=== PATIENT | female | born 1960 | race Caucasian/White ===

== ENCOUNTER 2019-01-19 11:08 | Inpatient (IN) | payer OTHER, SELFPAY ==
[2019-01-13 12:33] VITALS: BMI 26.2
[2019-01-19] VITALS (10 sets, daily range): BP systolic 87–150; BP diastolic 50–87; PULSE 62–96; RESP 12–21; TEMP 35.9–36.6; O2SAT 95–99; BMI 26.2
--- NOTE | 2019-01-19 | DI.RAD.S_ITS ---
PROCEDURE: XR HIP W PEL IF DONE RT 2V INDICATIONS: TOTAL RIGHT HIP TECHNIQUE: AP pelvis and lateral view of the right hip acquired. COMPARISON: [facility], CR, XR PELVIS WITH LATERAL HIP RIGHT, 10/07/2018, 8:30. [facility], CR, XR PELVIS 1-2V, 01/19/2019, 15:33. FINDINGS: Bones: Patient is status post right hip arthroplasty, with hardware components in expected positions. The hip joint appears congruent. The visualized bony structures appear intact. Previous left hip arthroplasty is present. Soft tissues: Overlying postoperative changes are noted. No suspicious soft tissue densities. IMPRESSION: New right hip arthroplasty as above. Dictated by: Carmelita Galeas M.D. on 01/19/2019 at 17:31 Approved by: Carmelita Galeas M.D. on 01/19/2019 at 17:32
--- NOTE | 2019-01-19 06:00 | DI.RAD.S_ITS ---
PROCEDURE: XR PELVIS 1-2V INDICATIONS: INTRA OPERATIVE RIGHT HIP TECHNIQUE: Intra-operative view of the pelvis and hip acquired. COMPARISON: [facility], CR, XR PELVIS WITH LATERAL HIP RIGHT, 10/07/2018, 8:30. FINDINGS: Bones: Intraoperative devices prior to placement of arthroplasty prostheses are in expected positions. No fractures or suspicious bony lesions. There is new right hip arthroplasty present. Previous left hip arthroplasty is noted. Soft tissues: Overlying surgical retractors are present, along with other intraoperative changes. IMPRESSION: Intraoperative new right hip arthroplasty as above. Dictated by: Carmelita Galeas M.D. on 01/19/2019 at 16:53 Approved by: Carmelita Galeas M.D. on 01/19/2019 at 16:54
[2019-01-19] MEDS: LACTATED RINGERS 1,000 ML 42 ML IV ×2 (11:47→16:18)
[2019-01-19] MEDS: ACETAMINOPHEN 325 MG TABLET 975 MG PO ×2 (11:50→18:57)
[2019-01-19] MEDS: VANCOMYCIN 1,000 MG/200 ML FROZ.PIGGY 200 MG IV (12:45)
--- NOTE | 2019-01-19 13:38 | PM.PREOP ---
Pre-operative Note Interval Note History & Physical reviewed/Exam performed by Physician: Yes Changes to H&P: No
--- NOTE | 2019-01-19 13:45 | P.OP_ITS ---
Operative Date/Time/Diagnoses Date of procedure: 01/19/19 Time of procedure: 13:58 Pre-op diagnosis: right hip oa Post-op diagnosis: same Procedure & Clinicians Procedure: right total hip Same procedure as scheduled: Yes Indications: The patient has had progressively worsening right hip pain with radiographic changes consistent with arthritis. Non-operative management has failed and the patient has requested total hip replacement. The risks, benefits and alternatives to surgery were discussed with the patient prior to proceeding. Risks discussed included, but were not limited to, failure to relieve pain, leg length discrepancy, dislocation, stiffness, infection, nerve damage, deep venous thrombosis, pulmonary embolism, stroke, coma, heart attack, permanent paralysis and , as well as the potential need for eventual revision of the prosthetic. Surgeon: Marjorie Yee Pipeliner: Ivy Hernandez Anesthesia Type: Spinal Operative Notes Findings: Severe right hip osteoarthritis, adequate stability Closure Type: primary Specimen(s): none sent Prosthetic devices, grafts, tissues, transplants, or devices: yee and nephew anthology size 7 standard offset, R3 acetabular 48 cup, 48 x 32 mm poly, one 15 mm screw, 32+ 0 head Applied: catheter Estimated Blood Loss (mL): 250 Blood products transfused: none Procedure in detail: The patient was seen in the pre-operative area, where the patient identified the right hip as the operative site and this was marked with my initials. The patient received pre-operative antibiotics and was taken to the operating room and placed on the operative table in the left lateral decubitus position after satisfactory anesthesia. A assistant associate full professor out was performed. The right leg was prepared from the ankle to the iliac crest with ChloroPrep in the usual fashion and draped through sterile drapes. The hip was approached through an approximately 20 cm incision centered over the greater trochanter and curving gently posteriorly as it went proximally. This was carried sharply to the fascia chas, which was divided and retracted with a self retaining retractor. The trochanteric bursa was excised with care being taken to avoid the sciatic nerve, which was identified and protected throughout the case. The short external rotators were incised and the capsulomuscular flap was raised and tagged for later repair. The hip was dislocated, and a femoral neck osteotomy performed approximately 15 mm above the lesser trochanter. Retractors were placed around the femur. The canal was opened with a box cutting osteotome, followed by a T handled reamer and a lateralizing reamer. The chili pepper broach was then used, followed by sequential broaching until there was good stability of the broach in the femur. Retractors were placed to expose the acetabulum. The labrum and central soft tissues were removed. Reaming was performed initially going up in 2 mm increments, then 1 mm increments until good bite was obtained with an odd sized reamer. The cup 1 mm larger than the last reamer was then inserted using the appropriate anteversion guides. A trial neutral liner was placed. The broach was placed in the canal. A trial head and neck were then placed and the hip relocated and checked for leg length and stability. An intraoperative film confirmed the component position and no evidence of fracture. The patient was stable in the position of sleep, of squatting, and could be put through a range of motion with 45 degrees internal rotation without dislocation. At 90 degrees flexion, internal rotation to 70 was possible before dislocation. The x-ray looked like I could probably go up 1 on the stem. I broached the femur up to a size 7. The patient had a fairly shallow acetabulum and it looked like it would be helpful to stabilize it with a screw. the trial liner was removed. Posterior screw 15 mm screw was placed. Repeat trial liner was placed and a repeat trial reduction was done with a 7 standard offset +0 showed excellent range of motion and good stability. X-rays confirmed good position of the components and screw position. the stability was rechecked and it was felt to be satisfactory and the appropriate components were opened, and the trials were removed. The acetabular liner was impacted into position. The final stem was then impacted into the prepared femoral canal. A brief Betadine soak was performed while trialing with head options. The hip was meticulously irrigated with normal saline. Finally the femoral head was impacted onto the stem. The acetabulum was cleared of all material and the hip relocated one final time. The capsulomuscular flap was then repaired to the greater trochanter though an awl hole using the tag sutures. The short external rotators were repaired with nonabsorbable sutures. A deep drain was placed and brought out anteriorly. The fascia chas was closed with Vicryl. The subcutaneous layer was closed with barbed sutures and SteriStrips. An Aquacel Ag dressing was applied and the patient was taken to recovery having tolerated the procedure well. Complications: none Condition: stable Disposition: Acute Care Plan for aftercare: The patient will be maintained on a standard total hip replacement protocol with weight bearing as tolerated and posterior hip precautions. The patient will receive Coumadin and sequential compression devices for DVT prophylaxis. The patient will be discharged home when safe for the home environment.
[2019-01-19] MEDS: CEFAZOLIN 2 GM/100 ML FROZ.PIGGY IV ×2 (14:15→22:47)
--- NOTE | 2019-01-19 14:55 | SUR.OPER ---
Lateral on padded OR bed. Gel axillary roll. Arms secured on padded armboard with pillow supporting top arm. Padded hip positioner braces x4 - anterior and posterior chest and pelvis. Additional gel pad used anterior pelvis. Gel pad under bottom leg from knee to foot and secured with tape over sheet.
[2019-01-19] MEDS: BUPIVACAINE 0.25% W/ EPI 30 ML VIAL 60 ML INJ (15:07)
[2019-01-19] MEDS: BUPIVACAINE LIPOSOME 266 MG/20 ML VIAL INJ (15:07)
[2019-01-19] MEDS: SODIUM CHLORIDE IRRIG SOLUTION 250 ML, EPINEPHrine 1 MG IRR (15:15)
[2019-01-19] MEDS: LACTATED RINGERS 1,000 ML 125 ML IV (18:30)
[2019-01-19] MEDS: OXYCODONE IR 5 MG TABLET 10 MG PO ×2 (18:56→22:01)
[2019-01-19] MEDS: HYDROMORPHONE 0.5 MG INJ IV (21:00)
[2019-01-19] MEDS: AMLODIPINE 5 MG TABLET 10 MG PO (21:50)
[2019-01-19] MEDS: FLECAINIDE 100 MG TABLET 50 MG PO (21:51)
[2019-01-19] MEDS: DOCUSATE 100 MG CAPSULE PO (21:51)
[2019-01-19] MEDS: GABAPENTIN 600 MG TABLET PO (21:52)
[2019-01-19] MEDS: SENNOSIDES 8.6 MG TABLET 25.8 MG PO (21:52)
[2019-01-19] MEDS: TIZANIDINE 4 MG TABLET 2 MG PO (21:53)
[2019-01-19] MEDS: OXYCODONE ER 10 MG TAB PO (22:00)
[2019-01-19] MEDS: diazePAM 5 MG TABLET PO (22:00)
--- NOTE | 2019-01-20 00:35 | PC.NURSE ---
1730- Pt arrived to room 207 from PACU via bed. Slightly hypotensive, but A/O xe. 98%RA, LS clear. Numbness from thigh to toes, unable to wiggle toes or ankle wave, but does rate pain 2/10 at this time. Aquacell drsg to right hip CDI, right groin area HV site with tegaderm, CDI. Bt+, denies nausea, provided with dinner tray, per pt request. RFA LR @ 125. Called Dr Barrett for additional pain medications due to pt takes oxycodone 10mg TID at home. New orders for Oxycontin 10mg PO BID, Dilaudid 0.5mg IVP Q-2hrs PRN, and valium 5mg PO Q-6hrs PRN for spasms. Bed alarm on.
[2019-01-20 03:29] VITALS: BP 116/43; PULSE 92; RESP 19; TEMP 36.4; O2SAT 98
[2019-01-20] MEDS: OXYCODONE IR 5 MG TABLET 10 MG PO ×4 (03:46→16:20)
[2019-01-20] MEDS: LACTATED RINGERS 1,000 ML 125 ML IV (03:49)
[2019-01-20] MEDS: CEFAZOLIN 2 GM/100 ML FROZ.PIGGY IV (05:44)
[2019-01-20] MEDS: HYDROMORPHONE 0.5 MG INJ IV (05:44)
[2019-01-20 06:07] LABS: Hematocrit 25.5 % (36-46); Hemoglobin 8.6 g/dL (12.0-16.0)
[2019-01-20 07:55] VITALS: BP 116/76; PULSE 69; RESP 16; TEMP 36.4; O2SAT 97
[2019-01-20] MEDS: FLECAINIDE 100 MG TABLET 50 MG PO (09:03)
[2019-01-20] MEDS: OXYCODONE ER 10 MG TAB PO (09:03)
[2019-01-20] MEDS: GABAPENTIN 300 MG CAPSULE PO (09:04)
[2019-01-20] MEDS: DOCUSATE 100 MG CAPSULE PO (09:04)
[2019-01-20] MEDS: ACETAMINOPHEN 325 MG TABLET 975 MG PO (09:04)
[2019-01-20] MEDS: ASPIRIN EC 81 MG TABLET PO (09:04)
[2019-01-20] MEDS: DULOXETINE 30 MG CAPSULE 60 MG PO (09:05)
[2019-01-20] MEDS: METOPROLOL ER 25 MG TABLET PO (09:05)
[2019-01-20 09:30] VITALS: PULSE 87; RESP 14; O2SAT 99
--- NOTE | 2019-01-20 10:03 | PT.IIE ---
Current Diagnoses Unilateral primary osteoarthritis, right hip (01/19/19) Surgery Performed Operation Date: 01/19/19 13:15 Actual Procedures p Total Hip Arthroplasty(Right) - Marjorie Quiñonez MD Surgical History (Last Updated 11/18/18 @ 13:36 by Madina Bettencourt RN) History of arthroplasty of right knee (Acute) History of section (Acute) History of total left hip arthroplasty (Acute ~2006) Hx of arthroscopy of right knee (Acute) Hx of cholecystectomy (Acute) Medical History (Last Updated 11/18/18 @ 13:36 by Madina Bettencourt RN) Arthritis (Acute) Asthma (Acute) Back pain (Acute) CKD (chronic kidney disease), stage III (Acute) Chronic fatigue (Acute) DJD (degenerative joint disease) (Acute) DVT (deep venous thrombosis) (Acute ~2006) Depression (Acute) Dry mouth (Acute) Easy bruisability (Acute) Edema (Acute) Fibromyalgia (Acute) Former smoker (Acute ~2014) HTN (hypertension) (Acute) History of cardioversion (Acute 11/12/18) Hypothyroidism (Acute) Leg cramping (Acute) Myopia of both eyes with astigmatism (Acute) Neck pain (Acute) Nerve pain (Acute) Oropharyngeal carcinoma (Acute ~03/2016) Palpitations (Acute) Paroxysmal A-fib (Acute) Pneumonia (Acute) Presbyopia (Acute) Pulmonary embolism (Acute ~08/2007) Uterine fibroid (Acute) Physical Therapy Inpatient Evaluation/Re-Eval M1 PT/OT-IP Prior Functional Status Start: 01/20/19 11:34 Freq: NEEDED Status: Active Protocol: Document 01/20/19 10:03 AB (Rec: 01/20/19 11:43 AB [id number]) Medical Review Prior Functional Status Medical History Reviewed Yes Communication able to make needs known Mobility and Gait stated that she is modified independent with all mobilities and ambulation using SPC but occasionally without AD indoors but furniture cruises Social History Household Members spouse Living Arrangements House Number of Floors (Floors) One Floor Number of Stairs To Enter/Railing? plans to get in from the back door with a downhill and one step to enter has 13 steps from the front with bilateral rails Home Environment High Toilet Tub/Shower Home Equipment Front Wheel Walker Straight Cane Hand Held Shower Grab Bars Near Toilet Grab Bars In Shower M2 PT-IP Current Condition Start: 01/20/19 11:34 Freq: NEEDED Status: Active Protocol: Document 01/20/19 10:03 AB (Rec: 01/20/19 11:43 AB [id number]) Physical Therapy Current Condition Current Condition Evaluation Date 01/20/19 Treatment Diagnosis s/p R LEILANI posterior approach; difficulty in walking Onset Date 01/19/19 Precautions Posterior Hip Precautions No Hip Flexion > 90 degrees No Hip Internal Rotation No Hip Adduction Weight Bearing Status Weight Bearing Status Weight Bear as Tolerated M3 PT-IP Subjective Start: 01/20/19 11:34 Freq: NEEDED Status: Active Protocol: Document 01/20/19 10:03 AB (Rec: 01/20/19 11:43 AB [id number]) Subjective Physical Therapy Visit Type Type Initial Evaluation Visit Start Time 10:03 Visit Stop Time 10:42 Total Visit Minutes 39 Number of COREMAKER APPRENTICE Visits 0 Physical Therapy Visit Comments Patient Comments pt agreeable to do PT Therapy Pain Assessment Pain When Pain Assessed At Rest Pain Present Pain Present Pain Reported Location Right Hip Intensity 2 Scale Used Numeric (1 - 10) Pain Management Techniques Apply Cold Re-positioning Timing of Activity with Medications M4 PT-IP Mobility and Gait Start: 01/20/19 11:34 Freq: NEEDED Status: Active Protocol: Document 01/20/19 10:03 AB (Rec: 01/20/19 11:43 AB [id number]) PT-Bed Mobility Assessment Supine to Sit Supine to Sit Standby Assistance Scooting Scooting to Edge of Bed Standby Assistance PT-Transfer Assessment Sit to and From Stand Sit to and from Stand Contact Guard Assistance 1 Person Assistance Use of Upper Extremities Equipment Transfer Assistive Device Gait Belt Front Wheeled Walker Orthotic/Prosthetic Devices or Brace: No Transfers Transfer Destination Chair Transfer Technique pt ambulated to the chair using FWW Transfer Ability Level of Assist Contact Guard Assistance 1 Person Assistance Use of Upper Extremities Gait Assessment Gait Gait Assistance Required: Contact Guard Assist Distance (Feet) 20 Able to Maintain Weight Bearing Status Yes During Gait Assistive Devices Assistive Device Gait Belt Front Wheeled Walker Orthotic/Prosthetic Devices or Brace: No Gait Deviations General Gait Pattern Antalgic Factors Limiting Gait Function Factors Limiting Gait Function Decreased Activity Tolerance Decreased Strength Limited Range of Motion Pain Poor Balance Poor Safety Awareness PT-Balance Assessment Sitting Balance and Reactions Static Sitting Balance Ability Good Dynamic Sitting Balance Ability Good Standing Balance and Reactions Static Standing Balance Ability Fair Dynamic Standing Balance Ability Fair Device Used FWW M5 PT-IP Objective Assessments Start: 01/20/19 11:34 Freq: NEEDED Status: Active Protocol: Document 01/20/19 10:03 AB (Rec: 01/20/19 11:43 AB [id number]) Orientation Orientation/Cognition Level of Alertness Alert Orientation Name Age Birthday Year Place Situation Language Function Ability No Deficits Noted Safety Awareness Decreased Safety Awareness Memory Description Short Term Impaired Gross Range of Motion Lower Extremity ROM Assessment Within Functional Limits Strength Lower Extremity Strength Assessment Right Impaired Knee 3+/5 Coordination Assessment Gross Coordination Gross Coordination WNL Sensation Assessment Sensation Gross Sensation WNL Muscle Tone Muscle Tone WNL Yes M6 PT-IP Treatment Start: 01/20/19 11:34 Freq: NEEDED Status: Active Protocol: Document 01/20/19 10:03 AB (Rec: 01/20/19 11:43 AB [id number]) Physical Therapy Treatment Exercises Exercises Quad Sets Heel Slides Education Education Provided Precautions Weight Bearing Status Post-Op Packet Safety M7 PT-IP Assessment and Plan Start: 01/20/19 11:34 Freq: NEEDED Status: Active Protocol: Document 01/20/19 10:03 AB (Rec: 01/20/19 11:43 AB [id number]) PT Summary Assessment and Plan Potential Rehabilitation Potential Good Status of Condition at Evaluation Stable Summary Impairments Pain ROM Strength Balance Coordination Sensation Tone Cognition Bed Mobility Transfers Gait Activity Tolerance Assessment Summary pt requiring CGA with mobility and plans to go home with her spouse and [id number] to assist her. pt has outpt PT already set up. Goals Bed Mobility Goal Independent Transfer Goal Independent Gait Goal Independent Gait Distance 150 Other Goals up/down 1 step using FWW SBA Days to Meet Goals 3 Frequency of Treatment Frequency Of Treatment Twice a Day Treatment Plan Physical Therapy Treatment Plan Bed Mobility Training Transfer Training Gait Training Therapeutic Exercise Balance Retraining Post Op Education Discharge Planning Hot or Cold Pack Neuromuscular Re-ed Coordination Retraining Manual Therapy Other Recommendations and Next Treatment bed mobility, ambulation, Focus stair climbing Recommendations To Nursing Amount of Assist Needed 1 Person Assist Discharge Recommendations PT Discharge Recommendations Home with Assistance Outpatient PT
--- NOTE | 2019-01-20 10:18 | PM.PNPO.1 ---
Subjective Date Patient Seen: 01/20/19 Time Patient Seen: 10:18 Interval history: Hospital day 2, postop day 1 following right posterior total hip arthroplasty by Dr. Quiñonez. Patient has remained stable. patient was on Percocet 10/325 mg taking 6 tablets per day preoperatively. She was started on OxyContin 10 mg 1 b.i.d. and oxycodone IR 10 mg q.3h. She has not had any physical therapy yet. Hemovac has 60 mL drainage fast shift. H&H 8.6/25.5 postop. Patient does have atrial fibrillation. Her Coumadin was held preoperatively and will be restarted tonight. Exam Vital Signs (past 8 hours): - 01/20/19 03:29 01/20/19 07:55 01/20/19 09:30 Temperature 97.6 F 97.5 F L Pulse Rate 92 H 69 87 Respiratory Rate 19 16 14 Blood Pressure 116/43 L 116/76 Pulse Oximetry 98 97 99 Oxygen Delivery Method Room Air Oxygen Flow Rate 0 Narrative Exam Narrative: Alert, oriented no acute distress resting in bed. legs. Aquacel dressing to right hip is dry without drainage or inflammation. Hemovac in place. No calf pain or swelling. Pulses symmetrical. Objective Labs Result Diagrams: 01/20/19 05:45 Labs: Laboratory Results - last 24 hr 01/20/19 05:45 Hgb 8.6 L Hct 25.5 L Assessment & Plan Post-op Postoperative Procedures Operation Date: 01/19/19 13:15 Actual Procedures Side Surgeon p Total Hip Arthroplasty Right Marjorie Sarah Quiñonez MD Plan: Patient will work with PT today. wait for Hemovac drainage to decrease before DC. Anticipate possible discharge home tomorrow if patient is stable. she does have physical therapy scheduled and [place]. Quality VTE Deep Vein Thrombosis/Pulmonary Embolism Present on Admission: No
[2019-01-20 11:24] VITALS: BP 102/63; PULSE 84; RESP 16; TEMP 36.7; O2SAT 97
--- NOTE | 2019-01-20 11:27 | CM.DANOTE ---
DCP: Case received, EMR reviewed and met with patient. Introduced self and role. DCP template completed with information currently available. Patient is a 58 year old female who admitted yesterday morning to the care of the hospitalist team. PCP: Dr. Palacios. Payer: confirmed: [facility]. Patient came to hospital for surgical procedure. She had R. Total Hip Arthroplasty. Patient has had history of chronic right hip pain. Met with patient in her room. Her [id number], Felicia, was also present. Patient is alert and oriented, independent, and lives in [facility] with her spouse, Trang. She mentioned that she has the support of her , as well as her [id number], for she lives 5 minutes away and will be helping her out as well. 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 Stated that she is hoping to return to work in the next few weeks. She had mentioned that her hip pain had gotten so bad, that she had to cut back on her hours. She was hopeful to go home today, but knows that she may have to wait another day. She will be working with physical therapy again this afternoon. She has been going to outpatient physical therapy already prior to surgery, [facility], and plans to return there post surgery. P: DCP to continue to follow. Patient should be able to go home when she is medically stable, and cleared by physical therapy as well. Reshma Sheffield RN/Mathematics Lecturer
--- NOTE | 2019-01-20 12:58 | PC.NURSE ---
HV TUBING FELL APART AND TUBING TOUCHED FLOOR. HV DC'D R/T SAME. 4X4 FOLDED IN 4THS W/ TEGADERM TO COVER. NO BLEEDING ISSUES FROM SITE. IV SL'D. CONT PULSE OX DC'D. REPORTS PAIN WELL CONTROLLED TODAY. AMBULATING AND FOLLOWING PRECAUTIONS WELL. 1P SBA TO BR AND THEN BACK TO BED AFTER SITTING UP FOR LUNCH.
--- NOTE | 2019-01-20 14:10 | PT.IPTN ---
Current Diagnoses Unilateral primary osteoarthritis, right hip (01/19/19) Surgery Performed Operation Date: 01/19/19 13:15 Actual Procedures p Total Hip Arthroplasty(Right) - Marjorie Quiñonez MD Physical Therapy Treatment Note M2 PT-IP Current Condition Start: 01/20/19 11:34 Freq: NEEDED Status: Active Protocol: Document 01/20/19 10:03 AB (Rec: 01/20/19 11:43 AB [id number]) Physical Therapy Current Condition Current Condition Evaluation Date 01/20/19 Treatment Diagnosis s/p R LEILANI posterior approach; difficulty in walking Onset Date 01/19/19 Precautions Posterior Hip Precautions No Hip Flexion > 90 degrees No Hip Internal Rotation No Hip Adduction Weight Bearing Status Weight Bearing Status Weight Bear as Tolerated M3 PT-IP Subjective Start: 01/20/19 11:34 Freq: NEEDED Status: Active Protocol: Document 01/20/19 14:10 GGD (Rec: 01/20/19 16:05 GGD [email or web address]) Subjective Physical Therapy Visit Type Type Treatment Note Visit Start Time 13:45 Visit Stop Time 14:10 Total Visit Minutes 25 Number of WINE CONSULTANT Visits 1 Physical Therapy Visit Comments Patient Comments Pt hopes to go home. Therapy Pain Assessment Pain When Pain Assessed At Rest Pain Present Pain Present Pain Reported M4 PT-IP Mobility and Gait Start: 01/20/19 11:34 Freq: NEEDED Status: Active Protocol: Document 01/20/19 14:10 GGD (Rec: 01/20/19 16:05 GGD [id number]) PT-Bed Mobility Assessment Supine to Sit Supine to Sit Standby Assistance Scooting Scooting to Edge of Bed Standby Assistance PT-Transfer Assessment Sit to and From Stand Sit to and from Stand Standby Assistance 1 Person Assistance Use of Upper Extremities Equipment Transfer Assistive Device Gait Belt Front Wheeled Walker Orthotic/Prosthetic Devices or Brace: No Transfers Transfer Destination Chair Transfer Ability Level of Assist Contact Guard Assistance 1 Person Assistance Use of Upper Extremities Gait Assessment Gait Gait Assistance Required: Standby Assistance Distance (Feet) 80 Able to Maintain Weight Bearing Status Yes During Gait Assistive Devices Assistive Device Gait Belt Front Wheeled Walker Orthotic/Prosthetic Devices or Brace: No Gait Deviations General Gait Pattern Antalgic Factors Limiting Gait Function Factors Limiting Gait Function Decreased Activity Tolerance Decreased Strength Limited Range of Motion Pain Poor Balance Stair Climbing Assessment Evaluation Level of Assist On Stairs Contact Guard Assistance Devices Stair Climbing Assistive Devices Front Wheel Walker Technique/Endurance Stair Climbing Direction Ascend and Descend Stair Climbing Technique Step to Step Number of Steps Climbed 1 Query Text: Stair Climbing Set # Repetitions (reps) 2 Comments Stair Climbing Comments Pt needed min cues for stair mobility. M5 PT-IP Objective Assessments Start: 01/20/19 11:34 Freq: NEEDED Status: Active Protocol: Document 01/20/19 10:03 AB (Rec: 01/20/19 11:43 AB [id number]) Orientation Orientation/Cognition Level of Alertness Alert Orientation Name Age Birthday Year Place Situation Language Function Ability No Deficits Noted Safety Awareness Decreased Safety Awareness Memory Description Short Term Impaired Gross Range of Motion Lower Extremity ROM Assessment Within Functional Limits Strength Lower Extremity Strength Assessment Right Impaired Knee 3+/5 Coordination Assessment Gross Coordination Gross Coordination WNL Sensation Assessment Sensation Gross Sensation WNL Muscle Tone Muscle Tone WNL Yes M6 PT-IP Treatment Start: 01/20/19 11:34 Freq: NEEDED Status: Active Protocol: Document 01/20/19 14:10 GGD (Rec: 01/20/19 16:05 GGD [id number]) Physical Therapy Treatment Exercises Exercises Gluteal Sets Quad Sets Heel Slides Education Education Provided Precautions Safety M7 PT-IP Assessment and Plan Start: 01/20/19 11:34 Freq: NEEDED Status: Active Protocol: Document 01/20/19 14:10 GGD (Rec: 01/20/19 16:05 GGD [id number]) PT Summary Assessment and Plan Summary Assessment Summary Pt improving with mobility. She was able to progress gait distance. She was safe and stable with stair mobility. Pt need min cues for hip precautions. She is safe for home D/C when medically stable . Frequency of Treatment Frequency Of Treatment Twice a Day Treatment Plan Physical Therapy Treatment Plan Bed Mobility Training Transfer Training Gait Training Therapeutic Exercise Balance Retraining Post Op Education Discharge Planning Hot or Cold Pack Neuromuscular Re-ed Coordination Retraining Manual Therapy Other Recommendations and Next Treatment bed mobility, ambulation, Focus stair climbing Recommendations To Nursing Amount of Assist Needed 1 Person Assist Discharge Recommendations PT Discharge Recommendations Home with Assistance Outpatient PT
--- NOTE | 2019-01-20 15:33 | PM.DS.1 ---
History of Present Illness Date Patient Seen: 01/20/19 Time Patient Seen: 15:35 Chief complaint: [address] RIGHT TOTAL HIP ARTHROPLASTY Narrative: Hospital day 2, postop day 1 following right posterior total hip arthroplasty. patient worked with physical therapy today and was cleared for discharge to home. She is not having postural dizziness or lightheadedness when up. Blood pressure has been low in the 102 over 70 range but she is stable. her drain inadvertently came out but there was only 20 mL noted. patient feels that she is able to be at home at this time and would like to be discharged. She is scheduled to start her Coumadin tonight. She is on OxyContin 10 mg 1 b.i.d. as well as short-acting oxycodone. She would like to stop the OxyContin. Discharge Providers Date of admission: 01/19/19 11:08 Discharge Date: 01/20/19 Primary care physician: REBECCA Mota Consults: 01/13/19 13:12 Consult to Anesthesiology Routine Comment: Consulting Provider: Anesthesiologist Reason for consultation: Surgeon requested re: Difficult Airway likely 01/19/19 06:00 Consult to Anesthesiology Routine Comment: Consulting Provider: Anesthesiologist Reason for consultation: Regional block for post operative pain control 01/19/19 17:37 Consult to Discharge Planning Routine Comment: Consult to Physical Therapy Evaluate & Treat Comment: Physician Instructions: post op LEILANI protocol Consult to Respiratory Therapy Evaluate & Treat Comment: Physician Instructions: Evaluate and treat Discharge provider: Justino Vasques PA-C Summary Discharge Diagnosis: Status post a right posterior total hip arthroplasty Hospital Course: Patient brought to hospital on 01/19/2019 for above-noted surgery. she remained stable postoperatively. She did work with physical therapy he gradually improved and felt she was stable for discharge home. Patient did have some mild postoperative anemia but was ortho statically stable. patient was discharged home on postop day 1. Status at Discharge Cognitive/behavioral status at discharge: oriented Functional status at discharge: uses cane/walker Overall status at discharge: patient is progressing back to baseline Time Spent with Patient Less than 30 minutes Exam Vital Signs (past 8 hours): - 01/20/19 07:55 01/20/19 09:30 01/20/19 11:24 Temperature 97.5 F L 98.1 F Pulse Rate 69 87 84 Respiratory Rate 16 14 16 Blood Pressure 116/76 102/63 Pulse Oximetry 97 99 97 Oxygen Delivery Method Room Air Oxygen Flow Rate 0 Narrative Exam Narrative: Alert, oriented no acute distress sitting in chair. Legs. Aquacel dressing is dry without drainage or inflammation. Hemovac drain is out. Objective Labs Result Diagrams: 01/20/19 05:45 Labs: Laboratory Results - last 24 hr 01/20/19 05:45 Hgb 8.6 L Hct 25.5 L Discharge Plan Discharge Plan Patient Disposition: Home Discharge comment: Postop posterior total hip arthroplasty protocol x6 weeks postop. Ambulate as tolerated. Use walker as needed. Discharge Med Rec/Prescriptions Prescriptions: New oxycodone 10 mg Tablet 20 mg PO Q4HR PRN (Reason: Pain, Severe (7-10)) Qty: 40 RF: 0 hydroxyzine pamoate [Vistaril] 25 mg capsule 25 mg PO Q6-8H PRN (Reason: nausea and vomiting, spasms) Qty: 30 RF: 0 Continued sennosides [senna] 8.6 mg Tablet 3 tab PO BID RF: 0 tizanidine 4 mg Tablet 1 - 2 tab PO BEDTIME RF: 0 warfarin 2.5 mg Tablet 1.25 mg PO DAILY RF: 0 acetaminophen [Tylenol Extra Strength] 500 mg Tablet 1,000 mg PO Q6H PRN (Reason: pain) RF: 0 amlodipine 10 mg Tablet 10 mg PO BEDTIME RF: 0 flecainide 50 mg Tablet 50 mg PO BID RF: 0 gabapentin 300 mg Capsule 900 mg PO SEEINSTR RF: 0 hydrochlorothiazide 25 mg Tablet 25 mg PO DAILY PRN (Reason: Edema) RF: 0 metoprolol succinate 25 mg Tablet Extended Release 24 Hr 25 mg PO QAM RF: 0 duloxetine 30 mg Capsule,Delayed Release(Dr/Ec) 60 mg PO QAM RF: 0 Discontinued oxycodone-acetaminophen [Endocet] 10-325 mg Tablet 1 - 2 tab PO Q4H PRN (Reason: pain) RF: 0 Follow up/Referrals: Carolina Palacios ARNP [Primary Care Provider] - Provider Discharge Instructions Diet: Diet as Tolerated Activity: Ambulate as tolerated. Use walker as needed. posterior total hip precautions x6 weeks postop. Cold/Heat Therapy: I SPECT to right hip as needed. Other treatments: Resume Coumadin tonight. Skin/Wound/Dressing Care Report to your healthcare provider any signs of infection, such as:: chills, fever, night sweats, increased pain, unusual drainage and unusual redness Dressing: Keep Aquacel dressing in place until postop visit. Visit Report/Discharge Packet Instructions: DI for Hip Replacement Discharge Data Primary Care Provider: Carolina Palacios Attending Provider: Marjorie Quiñonez Admit Date/Time: 01/19/19 11:08 Quality VTE Deep Vein Thrombosis/Pulmonary Embolism Present on Admission: No
== END 2019-01-20 16:34 | disposition home or self-care (01) | DRG 470 ==
PROVIDERS: Admitting Provider Orthopaedic Surgery; PCP Nurse Practitioner Family; Visit Provider Orthopaedic Surgery
PROC: 0SR90JZ Replacement of Right Hip Joint with Synthetic Substitute, Open Approach (ICD-10-PCS; CPT 27130; principal; 2019-01-19 13:15)
DX: M16.11 Unilateral primary osteoarthritis, right hip (principal); N18.3 Chronic kidney disease, stage 3 (moderate); Z86.718 Personal history of other venous thrombosis and embolism; Z96.642 Presence of left artificial hip joint; I12.9 Hypertensive chronic kidney disease with stage 1 through stage 4 chronic kidney disease, or unspecified chronic kidney disease; Z79.01 Long term (current) use of anticoagulants; M79.7 Fibromyalgia; Z87.891 Personal history of nicotine dependence; I48.0 Paroxysmal atrial fibrillation; E03.9 Hypothyroidism, unspecified; J45.909 Unspecified asthma, uncomplicated
CPT/HCPCS: 36415; 72170; 73502; 85014; 85018; 94760; 97116; 97161; 97530; C1776; C9290; J0171; J0690; J1100; J1170; J2250; J2405; J2704; J3010; J3370